=== PATIENT | female | born 1965 | race African-American/Black ===

== ENCOUNTER 2017-05-04 18:07 | Emergency (ER) | payer OTHER ==
[~2017-05-04] VITALS: Ht 160 cm; Wt 61.2 kg
[2017-05-04] MEDS ORDERED: Haloperidol 5mg/ml Inj IM ONE (18:45)
[2017-05-04 19:02] VITALS: BP 150/92
--- NOTE | 2017-05-04 19:09 | Emergency Room Report ---
History of Present Illness General Chief Complaint: Abdominal Pain Source: Patient, EMS Present Illness HPI 53-year-old female brought in by ambulance for "severe abdominal pain" for 2 days. Reason denies associated nausea, vomiting, diarrhea And asked if she had previous surgery patient states she has "gastroenteritis" and gastroparesis No entry on CURES denies associated urinary complaints History of present illness otherwise limited as patient is writhing on stretcher , falling on stretcher or rolling around on stretcher moaning Allergies: Coded Allergies: No Known Allergies (Unverified , 05/04/17) Patient History Past Medical History: unable to obtain Past Surgical History: none Pertinent Family History: none Social History: Denies: smoking, alcohol use, drug use Now: No Immunizations: UTD Reviewed Nursing Documentation: PMH: Agreed, PSxH: Agreed Nursing Documentation-PMH Past Medical History: No History, Except For Hx Gastrointestinal Problems: Yes - GASTRITIS Review of Systems All Other Systems: negative except mentioned in HPI Physical Exam Vital Signs Date Time Temp Pulse Resp B/P (MAP) Pulse Ox O2 Delivery O2 Flow Rate FiO2 05/04/17 18:02 98.6 102 16 143/90 99 Room Air Sp02 EP Interpretation: reviewed, normal General Appearance: normal inspection, well appearing, no apparent distress, alert, GCS 15, non-toxic, other - very dramatic, lying in position, naked on stretcher, writhing in pain Head: normocephalic, atraumatic Eyes: bilateral eye PERRL, bilateral eye EOMI ENT: normal ENT inspection, hearing grossly normal, normal pharynx, no angioedema, normal voice, TMs + canals normal, uvula midline, moist mucus membranes Neck: normal inspection, full range of motion, supple, thyroid normal, no meningismus, no bony tend Respiratory: normal inspection, lungs clear, normal breath sounds, no rhonchi, no respiratory distress, no retraction, no accessory muscle use, no wheezing, speaking full sentences Cardiovascular #1: regular rate, rhythm, no edema, no JVD, normal capillary refill Gastrointestinal: normal inspection, normal bowel sounds, non tender, soft, no mass, no peritonitis, non-distended, no guarding, no hernia, no pulsatile mass Genitourinary: no CVA tenderness Musculoskeletal: normal inspection, back normal, normal range of motion, no calf tenderness, pelvis stable, Allyn's Sign negative Neurologic: normal inspection, alert, oriented x3, responsive, production expert III-XII nml as tested, motor strength/tone normal, cerebellar normal, normal gait, speech normal Psychiatric: normal inspection, judgement/insight normal, mood/affect normal, no suicidal/homicidal ideation, no delusions Skin: normal inspection, normal color, no rash Lymphatic: normal inspection, no adenopathy Medical Decision Making Diagnostic Impression: Primary Impression: Abdominal pain Qualified Codes: R10.84 - Generalized abdominal pain Additional Impression: Marijuana abuse ER Course Patient with very dramatic appearing, writhing on stretcher, however stops writhing/moaning to answer questions Normal vital signs belie patient's appearance - HR 62, normotensive, afebrile Was given low dose Haldol for history of gastroparesis and marijuana abuse No leuks on labs. H&H stable. Elevated lactate however afebrile/normal vitals/no leuks/no sign of infection - doubt related to acute bacterial or surgical process. Likely related to patients writhing on stretcher, continually moving around, and dry wretching from MJ abuse. UA without UTI Utox + for MJ ER course: Patient has remained stable during ED stay. Patient is to be discharged to home. Patient is instructed to follow up with their primary care doctor within 5 days. Strict return precautions discussed with patient such as fever, chills, worsening/severe pain, nausea, vomiting, which may indicate severe illness. Patient verbalizes understanding and agrees with plan. Please note that this Emergency Department Report was dictated using [employer] analyst technology software, occasionally this can lead to erroneous entry secondary to interpretation by the dictation equipment Rhythm Strip Diag. Results EP Interpretation: yes Rate: 58 Rhythm: NSR, no PVC's, no ectopy Last Vital Signs Date Time Temp Pulse Resp B/P (MAP) Pulse Ox O2 Delivery O2 Flow Rate FiO2 05/04/17 19:02 61 16 150/92 100 Room Air 05/04/17 18:02 98.6 Status: improved Disposition: HOME, SELF-CARE MATT FUCHS M.D. May 04, 2017 19:09
[2017-05-04 19:30] VITALS: BP 137/75
[2017-05-04 19:49] LABS: LYMPHOCYTES % (AUTO) 13.7 % (20.0-45.0); MEAN CORPUSCULAR HEMOGLOBIN 32.9 PG (27.0-31.0); MEAN CORPUSCULAR HGB CONC 31.1 G/DL (32.0-36.0); MEAN CORPUSCULAR VOLUME 106 FL (80-99); MEAN PLATELET VOLUME 5.3 FL (6.5-10.1); NEUTROPHILS % (AUTO) 81.3 % (45.0-75.0); PLATELET COUNT 296 K/UL (150-450); RED CELL DISTRIBUTION WIDTH 11.2 % (11.6-14.8); WHITE BLOOD COUNT 8.3 K/UL (4.8-10.8)
[2017-05-04 20:10] LABS: APPEARANCE,URINE CLEAR; KETONES,URINE 1+ (NEGATIVE); LEUKOCYTE ESTERASE ,URINE 2+ (NEGATIVE); NITRITE,URINE NEGATIVE (NEGATIVE); PH,URINE 7 (4.5-8.0); PROTEIN,URINE NEGATIVE (NEGATIVE); UROBILINOGEN,URINE 4 MG/DL (0.0-1.0)
[2017-05-04 20:16] LABS: BACTERIA,URINE FEW /HPF; RBC,URINE 0-2 /HPF (0 - 2); SQUAMOUS EPITHELIAL CELL,UR FEW /LPF (NONE/OCC)
[2017-05-04 20:19] LABS: ANION GAP 12 mmol/L (5-15); CALCIUM 8.1 MG/DL (8.5-10.1); CARBON DIOXIDE 24 MMOL/L (21-32); CHLORIDE 104 MMOL/L (98-107); CREATININE 0.9 MG/DL (0.55-1.30); GLOMERULAR FILTRATION RATE > 60 mL/min (>60); SODIUM 140 MMOL/L (136-145)
[2017-05-04 20:23] LABS: ALANINE AMINOTRANSFERASE 60 U/L (12-78); ASPARTATE AMINO TRANSFERASE 51 U/L (15-37); LIPASE 185 U/L (73-393); TOTAL PROTEIN 7.3 G/DL (6.4-8.2)
[2017-05-04 20:34] LABS: REFLEX LACTIC ACID YES OR NO YES
[2017-05-04 20:48] VITALS: BP 132/78
[2017-05-04 21:24] VITALS: BP 132/78
== END 2017-05-04 21:25 | disposition home or self-care (01) ==
LOC: EDBD 18:07 → EMR 19:00
DX: R10.84 Generalized abdominal pain (principal); F12.10 Cannabis abuse, uncomplicated
CPT/HCPCS: 36415; 80053; 80307; 81003; 81025; 83605; 83690; 85025; 96372; 99284; J1630